=== PATIENT | male | born 1985 | race Caucasian/White ===

== ENCOUNTER → 2017-09-29 | Outpatient (CLI) | payer OTHER ==
[~2017-09-29] MED LIST: FLUO10CA48 PO
[2017-09-29 12:28] LABS: GLUCOSE,FASTING 105 mg/dl (70-99)
[2017-09-29 12:34] LABS: CHOLESTEROL 223 mg/dl (0-200); LDL CHOLESTEROL (DIRECT) 139 mg/dl
== END | disposition home or self-care (01) ==
LOC: C.LAB 09:47
PROVIDERS: ATTEND Internal Medicine
DX: E78.5 Hyperlipidemia, unspecified (principal)